=== PATIENT | male | born 1930 | race Caucasian/White ===

== ENCOUNTER 2016-09-30 10:34 | Inpatient (IN) | payer OTHER, MEDICARE ==
[~2016-09-30] VITALS: Ht 175.3 cm; Wt 68.9 kg
[~2016-09-30 10:34] MED LIST: DONEPEZIL HYDRO10 MG PO; METFORMIN HCL500 M3 PO; NAMENDA10 MG PO; OMEPRAZOLE40 MG PO; SIMVASTATIN20 MG PO
--- NOTE | 2016-09-30 10:41 | NUR ---
86 YO MALE BIBA FROM HOME. PT HX OF DEMENTIA. EMS CALLED BY PTS THIS AM WHEN SHE FOUND PT ON THE FLOOR IN THE BATHROOM, UNKNOWN HOW PT GOT ON THE FLOOR AND HOW LONG HE WAS ON THE FLOOR FOR. PT ARRIVES ALERT. ABLE TO STATE NAME AND BDAY BUT UNABLE TO STATES MONTH OR YEAR, PER EMS PTS STATES HE IS ACTING AT BASELINE. PT NOTED WITH NONPRODUCTIVE COUGH. SATS ON EMS ARRIVAL 80s, PLACED ON 4L NC, SATS 90% AT THIS TIME. TEMP 102.6.
--- NOTE | 2016-09-30 10:53 | NUR ---
MD ISABEL THOMAS EVAL
--- NOTE | 2016-09-30 11:05 | NUR ---
IV EST. BLOODWORK SENT (LAB, SST, BLUE, QUIROGA, PINK) 1ST SET BC SENT. PT DENIES COMPLAINTS. COARSE NON PRODUCTIVE COUGH NOTED SAT 88-90% ON 4L.
[2016-09-30 11:13] LABS: ABSOLUTE BASOPHIL COUNT 0 /CUMM (0.0-0.2); ABSOLUTE EOSINOPHIL COUNT 0 /CUMM (0.0-0.7); ABSOLUTE MONOCYTE COUNT 1.1 /CUMM (0.10-0.60); BASOPHIL % 0.1 % (0.0-2.0); EOSINOPHIL % 0 % (0-5); GRANULOCYTE % 86.4 % (42.2-75.2); HEMATOCRIT 45.3 % (42-52); MEAN CORPUSCULAR HGB 30.7 PG (27.0-31.0); MEAN CORPUSCULAR VOLUME 90.2 FL (80.0-94.0); MEAN PLATELET VOLUME 9.7 FL (7.4-10.4); PLATELET COUNT 188 /CUMM (130-400); RBC DISTRIBUTION WIDTH 13.2 % (11.5-14.5); RED BLOOD CELL CT 5.03 /CUMM (4.70-6.10)
--- NOTE | 2016-09-30 12:00 | NUR ---
SST AND BLUE TOP REDRAWN AND SENT AT 1152.
--- NOTE | 2016-09-30 12:10 | NUR ---
TO/FROM CT SCAN REMAINS SMILING WITH NO COMPLAINTS. STATES SHE TOOK THEM THIS AM AND IT WAS 100.0. NO MEDS GIVEN AT THAT TIME PER ; SPECIFICALLY, NO TYLENOL GIVEN MED WITH IV TYLENOL PER MAR AT THIS TIME. SAT 91-92% ON 4L. TEMP 102.4
--- NOTE | 2016-09-30 12:13 | CT SCAN REPORT ---
EXAMINATION: CT HEAD WITHOUT CONTRAST CT CERVICAL SPINE WITHOUT CONTRAST CLINICAL INFORMATION: Found on the floor. History of dementia. Head trauma. COMPARISON: None. TECHNIQUE: Contiguous axial imaging was performed from the skull base to vertex without intravenous administration of contrast. In addition, helical noncontrast CT imaging was acquired through the cervical spine and source images were reviewed along with axial reconstructions and sagittal and coronal MPRs. DLP: 945 mGy-cm FINDINGS: HEAD: There is no hemorrhage, edema, mass effect, extra-axial collection, shift of normally midline structures, hydrocephalus, territorial infarct, or other acute finding. There is moderate generalized prominence of the ventricles, sulci, and extra-axial series of spaces. There is mild hypoattenuation within the bihemispheric white matter most suggestive of chronic microangiopathy. There appears to be a chronic lacunar infarct within the anterior limb of the right internal capsule. The calvarium is intact. The mastoid air cells and middle ear cavities are clear. The left mastoid air cells are hypopneumatized. There are moderate degenerative changes involving the temporomandibular joints bilaterally. Moderate inflammatory disease within the ethmoid air cells bilaterally and mild mucosal thickening in the frontal, sphenoid, and maxillary sinuses. The nasal cavity appears clear. The upper nasopharynx appears grossly symmetric. CERVICAL SPINE: Vertebral body height is maintained. There are no compression deformities. No evidence of cervical spinal fracture. There is grade 1 degenerative anterolisthesis of C2 on C3, C3 on C4, C4 on C5, and C7 on T1. There is mild intervertebral disc height loss at several levels and moderate intervertebral disc height loss at C5-C6 and C6-C7 with endplate spurring, sclerosis and irregularity as well as Schmorl's nodes. There is no prevertebral soft tissue swelling. The lateral masses of C1 and C2 articulate normally. The atlantoaxial and atlantooccipital articulations are maintained. No high-grade canal stenosis. Moderate foraminal stenosis on the left at C3-C4 and bilaterally at C6-C7. Advanced multilevel facet arthropathy. The imaged pharyngeal and laryngeal contours appear unremarkable. No cervical adenopathy is appreciated. The visualized lung apices demonstrate no pneumothoraces. IMPRESSION: 1. No acute intracranial pathology. Moderate generalized volume loss and mild chronic microangiopathy. 2. No CT evidence of acute cervical spine fracture or traumatic subluxation. Multilevel spondylosis as above. 3. Mild to moderate pansinus inflammatory disease.
[2016-09-30 12:26] LABS: PT 11.8 SEC (9.4-12.5); PTT 30 SEC (25-37)
--- NOTE | 2016-09-30 12:29 | CT SCAN REPORT ---
EXAMINATION: CT CHEST WITHOUT CONTRAST CLINICAL INFORMATION: Fever. Chest trauma. Evaluate for pneumonia. COMPARISON: Previous CTA of the chest and chest x-ray most recent 08/08/2016. TECHNIQUE: Multidetector volumetric CT imaging of the chest was done. Axial MIP volume rendering provided. Sagittal and coronal reformatted images were obtained. Exam is limited due to artifact from respiratory motion, particularly at the lung bases. DLP: 502 mGy-cm. FINDINGS: QA REVIEWER: The cardiac silhouette is enlarged. There is atelectasis at the left lung base. LUNGS: There is increasing atelectasis or small infiltrate in the left lower lobe. The lungs are otherwise clear. There is no pneumothorax. MEDIASTINUM: Prominent mediastinal lymph nodes are unchanged. Largest lymph node is an AP window lymph node measuring 0.8 x 1.3 cm axial image 22 series 2. The thoracic aorta is upper normal in size, ascending thoracic aorta measuring 4 cm. There is coronary artery calcification. Heart is enlarged. There is an esophageal hernia. PLEURA: There is no pleural effusion. No pleural mass or thickening. AXILLA: No lymphadenopathy. UPPER ABDOMEN: Unremarkable. OSSEOUS STRUCTURES: There are degenerative changes of the thoracic spine. No fracture is seen. IMPRESSION: Limited exam due to artifact from motion. New atelectasis or small pneumonia in the left lower lobe. No fracture, pleural effusion or pneumothorax seen. Stable mediastinal lymphadenopathy. Coronary artery calcification. Upper normal size thoracic aorta. Esophageal hernia.
--- NOTE | 2016-09-30 12:45 | NUR ---
REPEAT TEMP 101.6 PT STATED HE NEEDED TO VOID; BY THE TIME STAFF ENTERED ROOM, BRIEFS NOTED TO BE A LITTLE WET. PT DENIES NEEDING TO URINATE IN URINAL BUT STATES HE WILL TELL STAFF WHEN ABLE. DR HALL AWARE OF AND AGREEABLE TO SAME C COLLAR REMOVED PER .
--- NOTE | 2016-09-30 12:53 | NUR ---
FLUIDS INFUSING @ 150 ML/HR PER MAR
--- NOTE | 2016-09-30 13:30 | NUR ---
PT URNIATED IN URINAL 50CC. SPECIMEN SENT TO LAB
--- NOTE | 2016-09-30 14:24 | NUR ---
ASSISTED PT TO USE URINAL AT THIS TIME, OUTPUT 200CC. PT RESTING ON STRETCHER AT THIS TIME, OFFERS NO COMPLAINTS. WILL CTM
--- NOTE | 2016-09-30 14:25 | ED MVC/FALL/TRAUMA COMPLAINT ---
History of Present Illness General Chief Complaint: Fall Stated Complaint: UNWITNESSED FALL Source: patient, family, old records, EMS Exam Limitations: dementia Vital Signs & Intake/Output Vital Signs & Intake/Output Vital Signs Date Time Temp Pulse Resp B/P Pulse O2 O2 Flow FiO2 Ox Delivery Rate 10/02 0013 98.3 64 20 118/60 91 Nasal Cannula 10/02 0000 Nasal 2.0L Cannula 10/01 2027 99.7 10/01 1914 101.7 98 22 148/70 92 Nasal 2.0L Cannula 10/01 1909 101.7 10/01 1811 99.9 86 20 166/76 90 Nasal 3.0L Cannula 10/01 0850 98.8 79 18 120/64 98 Nasal 2.0L Cannula 10/01 0800 Nasal 3.0L Cannula ED Intake and Output 10/02 0000 10/01 1200 Intake Total 5 860 Output Total Balance 5 860 Intake, IV 1265 620 Intake, Oral 780 240 Number 1 Bowel Movements Allergies Coded Allergies: NO KNOWN ALLERGIES (03/15/14) Reconcile Medications Donepezil Hydrochloride 10 MG TAB 1 TAB PO DAILY DEMENTIA (Reported) Memantine Hydrochloride (Namenda) 10 MG TABLET 1 TAB PO BID DEMENTIA ( Reported) Metformin HCl 500 MG TABLET 1 TAB PO BID DIABETES (Reported) Omeprazole 40 MG CAPSULE.DR 1 CAP PO DAILY HEART BURN Simvastatin (Zocor) 20 MG TAB 1 TAB PO QPM CHOLESTEROL (Reported) Triage Note: 86 YO MALE BIBA FROM HOME. PT HX OF DEMENTIA. EMS CALLED BY PTS THIS AM WHEN SHE FOUND PT ON THE FLOOR IN THE BATHROOM, UNKNOWN HOW PT GOT ON THE FLOOR AND HOW LONG HE WAS ON THE FLOOR FOR. PT ARRIVES ALERT. ABLE TO STATE NAME AND BDAY BUT UNABLE TO STATES MONTH OR YEAR, PER EMS PTS STATES HE IS ACTING AT BASELINE. PT NOTED WITH NONPRODUCTIVE COUGH. SATS ON EMS ARRIVAL 80s, PLACED ON 4L NC, SATS 90% AT THIS TIME. TEMP 102.6. Triage Nurses Notes Reviewed? yes HPI: Patient presents for evaluation of a fall that occurred about 645 this morning while at home. Patient was found by his on the floor. The patient himself has dementia and is unable to provide history. The patient hadn't presented for breakfast at the usual time prompting his to look for him. She states she found him lying on the floor and he was very limp. She was unable to lift him so she allowed him to "rest" on the floor for a short while. He seemed very sleepy to her. She states that he also felt warm over yesterday and today and she took his temperature at one point noting it to be 100F. Since the patient was unable to get up off the floor the patient's called her daughter. Past History Travel History Traveled to [place] past 21 day No Medical History Any Pertinent Medical History? 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 No Review of Systems Review of Systems Constitutional: Reports: no symptoms. Eyes: Reports: no symptoms. Ears, Nose, Throat, Mouth: Reports: no symptoms. Respiratory: Reports: see HPI. Cardiovascular: Reports: no symptoms. Gastrointestinal/Abdominal: Reports: no symptoms. Genitourinary: Reports: no symptoms. Musculoskeletal: Reports: no symptoms. Skin: Reports: no symptoms. Neurological/Psychological: Reports: no symptoms. All Other Systems: Reviewed and Negative Physical Exam Physical Exam General Appearance: see below Comments: Gen.: Well-nourished, well-developed, no acute respiratory distress. Head: Normocephalic, atraumatic. Eyes: Normal inspection bilaterally Ears: Normal inspection bilaterally Nose: Normal inspection Throat/mouth : Moist mucosa Neck: Cervical collar in place from prehospital Heart: Regular rate and rhythm, no murmurs rubs or gallops Lungs: Clear to auscultation bilaterally with normal air entry Chest: Nontender Back: Normal range of motion Abdomen: Soft, nontender, nondistended, normal bowel sounds Extremities: Normal range of motion grossly, equal radial pulses, no cyanosis clubbing or edema Neurologic: Cranial nerves grossly intact, speech is clear Skin: warm and dry Psychiatric: Calm, cooperative, no apparent delusions or hallucinations Core Measures ACS in differential dx? No Severe Sepsis Present: No Septic Shock Present: No Progress Differential Diagnosis: head trauma, C-spine trauma, chest trauma, electrolyte abnormality, dehydration, occult infection Plan of Care: Orders Procedure Date/time Status Consistent Carbohydrate 3 10/01 L Active SWALLOW EVALUATION 10/01 UNK Active Evaluate Swallowing 10/01 UNK Complete Therapeutic Exercise 10/01 UNK Complete PT EVAL MOD COMPLEX 30 MIN 10/01 UNK Complete Gait Training 10/01 UNK Complete VIRAL CULTURE 09/30 2250 Active OXYGEN SETUP CHG 09/30 UNK Complete OXYGEN 09/30 UNK Complete OXYGEN TRANSPORT 09/30 UNK Complete Current Medications Sig/Noah Start time Last Medication Dose Stop Time Status Admin Omeprazole 40 MG DAILY AC 10/01 0700 AC (Prilosec) Laboratory Tests 10/01/16 0620: Anion Gap 12, Estimated GFR > 60, BUN/Creatinine Ratio 21.3, Creatine Kinase 2797 H, CBC w Diff NO MAN DIFF REQ, RBC 4.18 L, MCV 92.3, MCH 30.7, RDW 13.5, MPV 9.9, Gran % 79.0 H, Lymphocytes % 12.4 L, Monocytes % 8.3, Eosinophils % 0 , Basophils % 0.3, Absolute Granulocytes 11.6 H, Absolute Lymphocytes 1.8, Absolute Monocytes 1.2 H, Absolute Eosinophils 0, Absolute Basophils 0, PUBS MCHC 33.3 Comments: 09/30/2016 2:45:34 PM I have updated Christopher and his regarding test results. I am treating him with Rocephin and azithromycin based on the possibility of a pneumonia. He also has an indication of sinus disease but does not appear to have a urinary tract infection at this point. His case has been discussed with Dr. Emily Peres. Since it is unclear as to the reason why he fell he will be admitted to telemetry for the possibility of a syncope secondary to dysrhythmia. Departure Departure Disposition: STILL A PATIENT Condition: Stable Clinical Impression Primary Impression: Fall Qualifiers: Encounter type: initial encounter Qualified Code: W19.XXXA - Unspecified fall, initial encounter Secondary Impressions: Pneumonia Qualifiers: Pneumonia type: due to unspecified organism Laterality: left Lung location: lower lobe of lung Qualified Code: J18.1 - Lobar pneumonia, unspecified organism Referrals: AZEEM GARCIA MD (PCP/Family) Departure Forms: Customer Survey General Discharge Information Admission Note Spoke With: MIA LYMAN,EMILY Lynn Documentation of Exam: Documentation of any treatments & extenuating circumstances including Concerns Regarding Discharge (functional status, medication knowledge or non-compliance, living conditions, etc.) that warrant an admission rather than observation: Patient presents status post fall for unclear reason at home. he has dementia and is unable to provide any history. He is febrile here in the emergency department with an elevated white blood cell count and the possibility of pneumonia on a CAT scan. In addition he has evidence of sinus inflammation on a head CAT scan. While at home the patient was unable to get up off the floor due to profound weakness. Given the patient's dementia weakness and fever I do not think he is a good candidate for outpatient management at this time. I feel he would be incapable of fulfilling his activities of daily living and would be at high risk of further falling with injury. In addition, given his age he is at increased risk of developing sepsis. I feel he requires aggressive management with IV antibiotics and close clinical monitoring of vital signs and clinical condition. Culture results should be followed and treated accordingly. Physical therapy consultation should be considered given the patient's generalized weakness. I feel he'll require a multiple day hospitalization. Critical Care Note Critical Care Note Critical Care Time: 30-74 min
--- NOTE | 2016-09-30 14:53 | NUR ---
MD ISABEL AT BEDSIDE TO DISCUSS TEST RESULTS AND POC. PT MEDICATED WITH ROCEPHINE PER EMAR. ZITHROMAX INFUSING PER EMAR. VSS.
--- NOTE | 2016-09-30 15:12 | History & Physical ---
STEVENSON CASTAÑEDA MD 09/30/16 1512: General Information and HPI Source of Information: patient, family, old records Exam Limitations: clinical condition History of Present Illness: Patient is an 86-year-old male with significant past medical history Alzheimer's dementia, hypertension, diabetes, GERD, hyperlipidemia, history of skin cancer, admitted with the chief complaints of unwitnessed fall. History is taken from the because the patient's clinical condition and Alzheimer's dementia. According to the , she found the patient in the morning on the floor by the side of bed. Then she called her daughter to help her. The daughter called the ambulance and they bring the patient over here. Patient is having history of cough and generalized weakness since last 3-4 days, but it is dry in nature. They did not try any medication for it. They also said that patient was having fever 100 Fahrenheit at home. Denies chills, nausea, vomiting, fever, sore throat, weakness, confusion, dysuria, altered bowel movement. claims that he was having history of runny nose since last 8 years due to medication, taking for Alzheimer's dementia. He is also having periods of intermittent confusion. He has past medical history of admission in August 2016 for fever of unknown origin. Allergies/Medications Allergies: Coded Allergies: NO KNOWN ALLERGIES (03/15/14) Home Med list Donepezil Hydrochloride 10 MG TAB 1 TAB PO DAILY DEMENTIA (Reported) Memantine Hydrochloride (Namenda) 10 MG TABLET 1 TAB PO BID DEMENTIA ( Reported) Metformin HCl 500 MG TABLET 1 TAB PO BID DIABETES (Reported) Omeprazole 40 MG CAPSULE.DR 1 CAP PO DAILY HEART BURN Simvastatin (Zocor) 20 MG TAB 1 TAB PO QPM CHOLESTEROL (Reported) Past History Travel History Traveled to [place] past 21 day No Medical History Neurological: Alzheimer's disease, dementia EENT: NONE Cardiovascular: hyperlipidemia Respiratory: NONE Gastrointestinal: NONE Hepatic: NONE Renal: NONE Musculoskeletal: NONE Psychiatric: NONE Endocrine: diabetes Blood Disorders: NONE 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 Comments Cannot be assessed because of patient's clinical condition. Exam & Diagnostic Data Last 24 Hrs of Vital Signs/I&O Vital Signs Date Time Temp Pulse Resp B/P Pulse O2 O2 Flow FiO2 Ox Delivery Rate 09/30 1706 100.6 92 16 152/66 93 Nasal 2.5L Cannula 09/30 1659 94 Nasal 2.5L Cannula 09/30 1455 100.1 76 18 108/52 93 Nasal 2.5L Cannula 09/30 1247 101.6 09/30 1246 101.6 102 92 110/55 92 Nasal 2.0L Cannula 09/30 1213 88 Room Air 09/30 1211 102.4 09/30 1210 102.4 09/30 1037 102.6 116 18 154/73 90 Nasal 4.0L Cannula Intake & Output 09/30 1600 09/30 0800 09/30 0000 Intake Total Output Total 50 Balance -50 Output, Urine 50 Patient 83.915 kg Weight Physical Exam General Appearance Alert, Cooperative, No Acute Distress Skin No Rashes, No Breakdown Neck Supple, No JVD Cardiovascular Regular Rate, Normal S1, Normal S2 Lungs decreased air entry and clear Right and left basilar rhonchi Abdomen Soft, No Tenderness, distended Neurological Normal Speech Extremities No Clubbing, No Cyanosis, No Edema Vascular Normal Pulses, Pulses Symmetrical Assessment/Plan Assessment: Patient is an 86-year-old male with significant past medical history Alzheimer's dementia, hypertension, diabetes, GERD, hyperlipidemia, history of skin cancer, admitted with the chief complaints of unwitnessed fall. History has been taken from the because the patient's clinical condition and Alzheimer's dementia Vital signs at the time of admission- [id number], pulse 116, respiratory rate 18, blood pressure 154/73, SPO2 90% on nasal cannula at 4 liters. Chest x-ray- New atelectasis or small pneumonia in the left lower lobe. No fracture, pleural effusion or pneumothorax seen.Stable mediastinal lymphadenopathy. Coronary artery calcification. Upper normal size thoracic aorta. Esophageal hernia Pertinent labs-WBC 15.0, magnesium 1.5, glucose 150, creatine kinase 1039, UA - hazy, protein 30, ketones 40, Problem list- Unwitnessed fall under evaluation Left lower lobe pneumonia/community acquired pneumonia Diabetes Hypertension Hyperlipidemia GERD Alzheimer's dementia Mediastinal lymphadenopathy Coronary artery calcification Esophageal hernia History of skin cancer Plan - * We will admit the patient on telemetry to evaluate for cardiac arrhythmias as the patient had unwitnessed fall and found to be in hypoxemic respiratory failure with fever. * CT chest is showing left lower lobe pneumonia, so we'll treat him for community-acquired pneumonia with ceftriaxone and azithromycin. * We will do a flu test * As the patient's CPK is elevated , we will stop atorvastatin. * We will stop metformin and start him on NovoLog sliding scale * We'll monitor pre-meal blood sugar 3 times a day * We will recheck CBC/BEP/CPK tomorrow * Advice PT evaluation * We will do echocardiogram * We will place a consult for Gordo Garcia MD/Redd Blake MD and follow his recommendation. * We'll continue all home medication * CODE STATUS DNR/DNI * DVT prophylaxis ALP S/heparin * Diet -heart healthy diet. After formal swallow evaluation As Ranked By This Provider Problem List: 1. Left lower lobe pneumonia 2. Community acquired pneumonia 3. Unwitnessed fall 4. Hypertension 5. Hyperlipidemia 6. Diabetes mellitus 7. Alzheimer's dementia Core Measures/Miscellaneous Acute Coronary Syndrome ACS Diagnosis: No Cerebrovascular Accident CVA/TIA Diagnosis: No Congestive Heart Failure CHF Diagnosis: No Venous Thromboembolism VTE Risk Factors: Age > 40 VTE Prophylaxis Ordered Inpt: Mechanical (ALPS/TEDS) No Mech VTE prophylaxis d/t: No contraindications No VTE Pharm Prophylaxis d/t: No contraindications VTE Diagnosis: No VTE Type: NONE VTE Confirmed by (Test): NONE Severe Sepsis Severe Sepsis Present: No Septic Shock Septic Shock Present: No Miscellaneous Documentation Attending Case Discussed With: MIA LYMAN,ULYSSES Lynn Primary Care Physician: AZEEM GARCIA MD Patient sees these Specialists Communications Professor -Dr. Garcia Level of Patient Care: Telemetry YEFRI LYMAN,ABNER 09/30/16 1607: Resident Review Statement Resident Statement: examined this patient, discussed with cad intern, agreed with cad intern Other Findings: 86 y/o man with a PMH of HTN, DM, dementia who presented to the ED after an unwitnessed fall. Per , he has also been having a non productive cough over the last 4 days and recorded a temperature of 100F this AM. Head CT negative of Problem List: * Community Acquired Pneumonia * Unwitnessed fall complicated by prolonged immobility * Diabetes Mellitus * Hyperlipidemia * Dementia Plan: * Admit to telemetry * Start Ceftriaxone and Azithromycin * Blood culture, sputum cultures * IVF NS at 75 ml/hr * Repeat CK in AM * Hold Metformin, Fingersticks, Low Dose sliding scale * Continue home Memantine and Donepezil * DVT PPx: SubQ Lovenox * Pain Pathway: Tylenol PRN * Code Status: DNR/DNI ULYSSES BELLAMY MD 10/01/16 1044: Attending MD Review Statement Attending Statement Attending MD Statement: examined this patient, discuss w/resident/PA/LAB CLERK, agreed w/resident/PA/LAB CLERK, reviewed EMR data (avail), discussed with nursing, discussed with case mgmt, reviewed images Attending Assessment/Plan: See medical brief addendum note dated 09/30/2016.
--- NOTE | 2016-09-30 15:16 | Admission Certification ---
Admission Certification Certification Statement - As attending physician, I certify that at the time of - admission, based on clinical presentation, severity of - symptoms, need for further diagnostic testing and - therapeutic interventions, and risk of adverse outcomes - without in-hospital treatment, in my clinical assessment, - this patient requires an acute hospital stay for a minimum - of two nights or longer. I have also considered psychsocial - factors such as support system, advanced age, financial - issues, cognitive issues, and failed out-patient treatments, - past re-admission history, safety of patient, and lack of - compliance as applicable. Specific rationale supporting this admission is: Syncope in patient with dementia and fever 102 with community-acquired pneumonia.
--- NOTE | 2016-09-30 15:22 | PN- Att Addend ---
Attending Addendum Attending Brief Note 86-year-old male past medical history of dementia, admission in July- August 2016 for fever of unclear etiology. He was brought in today after being found on the floor by his with unknown duration spent on the floor. When he arrived in the ER he was febrile to 102.6 with acute hypoxemic respiratory failure (sat 88 percent on RA), leukocytosis of [address] chest done without contrast showed a small left lower lobe pneumonia. Will bring him into telemetry, monitor him for any arrhythmia, get an echocardiogram. Treat him with IV ceftriaxone and azithro for community-acquired pneumonia and follow the white count and O2 sat closely. Hold Metformin, watch FS and put him on DVT prophylaxis.
--- NOTE | 2016-09-30 16:11 | NUR ---
FOOD TRAY PROVIDED TO PT.
--- NOTE | 2016-09-30 16:26 | NUR ---
PT ADMITTED TO ROOM 174-2
--- NOTE | 2016-09-30 17:22 | NUR ---
REPORT GIVEN TO TELE, [facility] CALLED FOR TRANSPORT.
--- NOTE | 2016-10-01 03:06 | Event Note ---
Event Note Event Note: Rapid flu test came back positive for influenza B. Although patient's symptoms of cough and generalized weakness had been ongoing for 3-4 days, fever was new and had started on the morning of current presentation. Patient was seen at bedside to clarify if he was still within the time window for Tamiflu, however he was unable to provide any history given his dementia. It was felt that patient could still be within the 48-hour window from the onset of symptoms since the fever and acute hypoxemic respiratory failure was new. Decision was to made to err on the side of caution and start the patient on Tamiflu 75 mg PO BID , however nursing staff felt that patient was too lethargic to take medications. Per pharmacy, there is no IV form of Tamiflu that can be administered. Patient will be started on oral Tamiflu pending formal swallow evaluation in the AM.
[2016-10-01 07:49] LABS: ABSOLUTE BASOPHIL COUNT 0 /CUMM (0.0-0.2); ABSOLUTE EOSINOPHIL COUNT 0 /CUMM (0.0-0.7); ABSOLUTE GRANULOCYTE CT 11.6 /CUMM (1.4-6.5); ABSOLUTE LYMPH COUNT 1.8 /CUMM (1.2-3.4); ABSOLUTE MONOCYTE COUNT 1.2 /CUMM (0.10-0.60); BASOPHIL % 0.3 % (0.0-2.0); EOSINOPHIL % 0 % (0-5); MEAN CORPUSCULAR HGB 30.7 PG (27.0-31.0); MEAN CORPUSCULAR HGB CONC 33.3 G/DL (33.0-37.0); MEAN CORPUSCULAR VOLUME 92.3 FL (80.0-94.0); MEAN PLATELET VOLUME 9.9 FL (7.4-10.4); PLATELET COUNT 151 /CUMM (130-400); RBC DISTRIBUTION WIDTH 13.5 % (11.5-14.5); RED BLOOD CELL CT 4.18 /CUMM (4.70-6.10); WHITE BLOOD CELL COUNT 14.6 /CUMM (4.8-10.8)
[2016-10-01 08:19] LABS: HEMATOCRIT 38.5 % (42-52)
[2016-10-01 08:50] VITALS: BP 120/64
--- NOTE | 2016-10-01 10:48 | PN- Att Addend ---
Attending Addendum Attending Brief Note Patient seen and examined. Agree with the advertising intern's note. 86-year-old male with dementia, hyperlipidemia who was brought in after being found on the floor by his . He has mild rhabdo my lysis with an elevated CPK (hold the statin in the meantime). He was also febrile to 102 with a white count and a left shift. We started him on ceftriaxone and azithromycin for pneumonia and his influenza swab came back positive. Given that he is hospitalized, over the age of 65 and has significant comorbidities I believe it's prudent to treat him with Tamiflu. He passed a swallow eval so we'll start him on a regular diet, by mouth medications and continue the antibiotics for a superinfection of influenza with pneumonia.
--- NOTE | 2016-10-01 13:22 | PN- Housestaff ---
Subjective Follow-up For: Influenza B Left Lower lobe pneumonitis Complaints: no complaints Tele-Events Since Last Visit: There was no any acute cardiac event overnight Subjective: Patient was seen and examined at the bedside. He was able to answer most of questions asked to him. I did a formal swallow evaluation at the bedside. He was able to drink a glass of water without any difficulty and after drinking the water, there was no any signs in the bilateral lungs of aspiration Review of Systems Constitutional: Reports: weakness. EENTM: Denies: no symptoms. Cardiovascular: Denies: no symptoms. Respiratory: Reports: cough. Denies: short of breath, sputum production. Gastrointestinal: Denies: abdominal pain, bloating, constipation, diarrhea. Genitourinary: Denies: discharge, dysuria, frequency, hematuria. Musculoskeletal: Denies: back pain, gout, joint pain, joint swelling, muscle pain. Objective Last 24 Hrs of Vital Signs/I&O Vital Signs Date Time Temp Pulse Resp B/P Pulse O2 O2 Flow FiO2 Ox Delivery Rate 10/01 0850 98.8 79 18 120/64 98 Nasal 2.0L Cannula 10/01 0800 Nasal 3.0L Cannula 10/01 0322 97.5 22 93 Nasal 3.0L Cannula 10/01 0115 97.5 10/01 0023 99.2 10/01 0000 93 Nasal 3.0L Cannula 09/30 2232 101.8 09/30 1800 93 Nasal 2.5L Cannula 09/30 1706 100.6 92 16 152/66 93 Nasal 2.5L Cannula 09/30 1659 94 Nasal 2.5L Cannula Intake & Output 10/01 1600 10/01 0800 10/01 0000 Intake Total 1205 860 420 Output Total Balance 1205 860 420 Intake, IV 665 620 420 Intake, Oral 540 240 0 Number 1 2 Bowel Movements Patient 68.946 kg Weight Physical Exam General Appearance: Alert, Oriented X3, Cooperative, No Acute Distress Skin: No Rashes, No Breakdown HEENT: Atraumatic, PERRLA, EOMI Neck: Supple, No JVD Cardiovascular: Normal S1, Normal S2 Lungs: crackles at left lung base Abdomen: Soft, distended Neurological: Normal Speech Extremities: No Clubbing, No Cyanosis, No Edema Vascular: Normal Pulses, Pulses Symmetrical Assessment/Plan Assessment: Patient is an 86-year-old male with significant past medical history Alzheimer's dementia, hypertension, diabetes, GERD, hyperlipidemia, history of skin cancer, admitted with the chief complaints of unwitnessed fall. History has been taken from the because the patient's clinical condition and Alzheimer's dementia Problem list- Influenza B Unwitnessed fall under evaluation Left lower lobe pneumonia/community acquired pneumonia Diabetes Hypertension Hyperlipidemia GERD Alzheimer's dementia Mediastinal lymphadenopathy Coronary artery calcification Esophageal hernia History of skin cancer Vital signs-temperature 98.8, pulse 79, respiratory rate 18, blood pressure 120/ 64, SPO2 98% Pertinent labs-WBC 14.6, hemoglobin 12.8, [id number], UA-Hazy Plan - * We'll continue telemetry monitoring * We'll continue ceftriaxone and azithromycin. * As flu test is positive for influenza B, and patient is having comorbidities including his age more than 65, so we started him on Tamiflu for total 5 days * As the patient's CPK is elevated , we will continue to stop atorvastatin. * We will continue to stop metformin and give him NovoLog sliding scale * We'll monitor pre-meal blood sugar 3 times a day * Continue PT evaluation * We will follow echocardiogram * We will follow cardiology recommendation * We'll continue all home medication * CODE STATUS DNR/DNI * DVT prophylaxis ALP S/heparin * Diet -heart healthy diet, he passed formal swallow evaluation Problem List: 1. Hypertension 2. Hyperlipidemia 3. Diabetes mellitus 4. Alzheimer's dementia 5. Unwitnessed fall 6. Left lower lobe pneumonia 7. Community acquired pneumonia Pain Ratin Pain Location: Generalized body Pain Goal: Remain pain free Pain Plan: Mild to moderate Tomorrow's Labs & Rationales: none
[2016-10-01 18:11] VITALS: BP 166/76
--- NOTE | 2016-10-01 19:11 | Cons- Cardiology ---
General Information and HPI Consulting Request Date of Consult: 10/01/16 Requested By: ULYSSES BELLAMY MD Reason for Consult: Possible syncope History of Present Illness: The patient is an 86-year-old male with history of Alzheimer's dementia, hypertension, diabetes mellitus, GERD, and hyperlipidemia. He was found by his on the floor next to the bed in the morning. EMS was called but the patient to the hospital. The patient able to give only limited history because of his Alzheimer's dementia. He does not recall falling, and is unsure whether he had syncope. The patient had recent cough and generalized weakness for 3-4 days. The patient was noted to have a fever of 100F at home. He has had intermittent. No confusion. No chest pain. No shortness of breath. No palpitations. No diaphoresis. No lightheadedness or dizziness. No nausea or vomiting. He was pretty submitted in August 2016 for fever of unknown origin. He has tested positive for influenza, and treatment with Tamiflu has been initiated. Allergies/Medications Allergies: Coded Allergies: NO KNOWN ALLERGIES (03/15/14) Home Med List: Donepezil Hydrochloride 10 MG TAB 1 TAB PO DAILY DEMENTIA (Reported) Memantine Hydrochloride (Namenda) 10 MG TABLET 1 TAB PO BID DEMENTIA ( Reported) Metformin HCl 500 MG TABLET 1 TAB PO BID DIABETES (Reported) Omeprazole 40 MG CAPSULE.DR 1 CAP PO DAILY HEART BURN Simvastatin (Zocor) 20 MG TAB 1 TAB PO QPM CHOLESTEROL (Reported) Current Medications: Current Medications Sig/Noah Start time Last Medication Dose Route Stop Time Status Admin Acetaminophen 650 MG Q6 PRN 10/01 1845 AC PO Acetaminophen 1,000 MG Q6P PRN 09/30 2230 AC 09/30 N/A 1 UNIT IV 2232 Acetaminophen 650 MG Q6P PRN 09/30 1545 DC PO Azithromycin 500 MG DAILY 10/01 1000 10/01 Dextrose/Water 250 ML IV 1047 Ceftriaxone Sodium 1,000 MG DAILY 10/01 1000 AC 10/01 IV 1048 Donepezil HCl 10 MG DAILY 10/01 1000 AC 10/01 PO 1034 Enoxaparin Sodium 40 MG DAILY 10/01 1000 10/01 SC 1037 Guaifenesin 600 MG ONCE ONE 10/01 1845 DC PO 10/01 1846 Insulin Aspart 0 TIDAC 09/30 1700 AC 10/01 SC 1236 Magnesium Sulfate 1 GM ONCE ONE 09/30 1600 DC 09/30 Dextrose/Water 100 ML IV 09/30 1958 1700 Memantine 10 MG BID 09/30 2200 AC 10/01 PO 1034 Omeprazole 40 MG DAILY AC 10/01 0700 AC PO Oseltamivir Phosphate 75 MG BID 10/01 0100 AC 10/01 PO 10/05 0059 1034 Sodium Chloride 1,000 ML .[id number] 09/30 1545 DC 10/01 IV 10/01 1824 1033 Sodium Chloride 1,000 ML ONCE ONE 09/30 1300 DC 09/30 IV 09/30 1939 1254 Review of Systems Review of Systems: No rash. No tremor. No melena. 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 Family History Relations & Conditions If Any: MOTHER FATHER Relation not specified for: FH: CHF (congestive heart failure) FH: lung cancer Psychosocial History Services at Home: None Smoking Status: Unknown If Ever Smoked Exam & Diagnostic Data Vital Signs and I&O Vital Signs Date Time Temp Pulse Resp B/P Pulse O2 O2 Flow FiO2 Ox Delivery Rate 10/01 1811 99.9 86 20 166/76 90 Nasal 3.0L Cannula 10/01 0850 98.8 79 18 120/64 98 Nasal 2.0L Cannula 10/01 0800 Nasal 3.0L Cannula 10/01 0322 97.5 22 93 Nasal 3.0L Cannula 10/01 0115 97.5 10/01 0023 99.2 10/01 0000 93 Nasal 3.0L Cannula 09/30 2232 101.8 Intake & Output 10/01 1600 10/01 0800 10/01 0000 09/30 1600 09/30 0800 09/30 0000 Intake Total 1205 860 420 Output Total 50 Balance 1205 860 420 -50 Intake, IV 665 620 420 Intake, Oral 540 240 0 Number 1 2 Bowel Movements Output, Urine 50 Patient 152 lb 185 lb Weight Physical Exam: Gen: The patient is in no acute distress HEENT: Normal nose, ears, and oropharynx. Pupils equal bilaterally. Conjunctiva normal. Neck: Supple with no JVD, no masses, and no thyromegaly Lungs: Clear to auscultation with normal respiratory effort Heart: RRR, S1, S2, 1/6 systolic murmur. No peripheral edema, 2+ pulses in the lower extremities bilaterally Abdomen: Soft, nontender, no masses. No hepatomegaly. No splenomegaly Extremities: No clubbing or cyanosis. Normal muscle strength in the upper and lower extremities Skin: Normal skin turgor with no skin ulcers or lesions noted. Neuro: Cranial nerves intact. Sensation intact Psych: Awakeand alert, but confused with flat affect Labs/Shimon Results: Laboratory Tests 10/01 09/30 0620 2250 Chemistry Sodium (137 - 145 mmol/L) 141 Potassium (3.5 - 5.1 mmol/L) 4.0 Chloride (98 - 107 mmol/L) 106 Carbon Dioxide (22 - 30 mmol/L) 23 Anion Gap (5 - 16) 12 BUN (9 - 20 mg/dL) 17 Creatinine (0.7 - 1.2 mg/dL) 0.8 Estimated GFR (>60 ml/min) > 60 BUN/Creatinine Ratio (7 - 25 %) 21.3 Creatine Kinase (55 - 170 U/L) 2797 H Hematology CBC w Diff NO MAN DIFF REQ WBC (4.8 - 10.8 /CUMM) 14.6 H RBC (4.70 - 6.10 /CUMM) 4.18 L Hgb (14.0 - 18.0 G/DL) 12.8 L Hct (42 - 52 %) 38.5 L MCV (80.0 - 94.0 FL) 92.3 MCH (27.0 - 31.0 PG) 30.7 RDW (11.5 - 14.5 %) 13.5 Plt Count (130 - 400 /CUMM) 151 MPV (7.4 - 10.4 FL) 9.9 Gran % (42.2 - 75.2 %) 79.0 H Lymphocytes % (20.5 - 51.1 %) 12.4 L Monocytes % (1.7 - 9.3 %) 8.3 Eosinophils % (0 - 5 %) 0 Basophils % (0.0 - 2.0 %) 0.3 Absolute Granulocytes (1.4 - 6.5 /CUMM) 11.6 H Absolute Lymphocytes (1.2 - 3.4 /CUMM) 1.8 Absolute Monocytes (0.10 - 0.60 /CUMM) 1.2 H Absolute Eosinophils (0.0 - 0.7 /CUMM) 0 Absolute Basophils (0.0 - 0.2 /CUMM) 0 PUBS MCHC (33.0 - 37.0 G/DL) 33.3 Serology Virus Culture Pending 09/30 09/30 1325 1152 Chemistry Sodium (137 - 145 mmol/L) 138 Potassium (3.5 - 5.1 mmol/L) 4.3 Chloride (98 - 107 mmol/L) 101 Carbon Dioxide (22 - 30 mmol/L) 26 Anion Gap (5 - 16) 12 BUN (9 - 20 mg/dL) 12 Creatinine (0.7 - 1.2 mg/dL) 0.9 Estimated GFR (>60 ml/min) > 60 BUN/Creatinine Ratio (7 - 25 %) 13.3 Glucose (65 - 99 mg/dL) 150 H Calcium (8.4 - 10.2 mg/dL) 9.6 Magnesium (1.6 - 2.3 mg/dL) 1.5 L Total Bilirubin (0.2 - 1.3 mg/dL) 0.8 AST (17 - 59 U/L) 51 ALT (21 - 72 U/L) 57 Alkaline Phosphatase (< 127 U/L) 91 Creatine Kinase (55 - 170 U/L) 1039 H Troponin I (<0.11 ng/ml) 0.02 Total Protein (6.3 - 8.2 g/dL) 7.7 Albumin (3.5 - 5.0 g/dL) 4.4 Globulin (1.9 - 4.2 gm/dL) 3.3 Albumin/Globulin Ratio (1.1 - 2.2 %) 1.3 Coagulation PT (9.4 - 12.5 SEC) 11.8 INR (0.90 - 1.17) 1.13 APTT (25 - 37 SEC) 30 Urines Urinalysis LIGHT H Urine Color (YEL,AMB,STR) YEL Urine Clarity (CLEAR) HAZY H Urine pH (5.0 - 8.0) 6.0 Ur Specific [place] (1.001 - 1.035) 1.025 Urine Protein (NEG,<30 MG/DL) 30 H Urine Ketones (NEG) 40 H Urine Nitrite (NEG) NEG Urine Bilirubin (NEG) NEG Urine Urobilinogen (0.1 - 1.0 EU/dl) 0.2 Ur Leukocyte Esterase (NEG) NEG Ur Microscopic SEDIMENT EXAMINED Urine RBC (0 - 5 /HPF) 1-3 Urine WBC (0 - 2 /HPF) 1-3 H Ur Epithelial Cells (NONE,FEW) FEW Hyaline Casts (0/LPF) RARE H Granular Casts (NONE /LPF) FEW H Urine Mucus (FEW,NONE) MOD H Urine Hemoglobin (NEG) MOD H Urine Glucose (N MG/DL) NEG 09/30 1058 Hematology CBC w Diff MAN DIFF ORDERED WBC (4.8 - 10.8 /CUMM) 15.0 H RBC (4.70 - 6.10 /CUMM) 5.03 Hgb (14.0 - 18.0 G/DL) 15.4 Hct (42 - 52 %) 45.3 MCV (80.0 - 94.0 FL) 90.2 MCH (27.0 - 31.0 PG) 30.7 RDW (11.5 - 14.5 %) 13.2 Plt Count (130 - 400 /CUMM) 188 MPV (7.4 - 10.4 FL) 9.7 Gran % (42.2 - 75.2 %) 86.4 H Lymphocytes % (20.5 - 51.1 %) 6.5 L Monocytes % (1.7 - 9.3 %) 7.0 Eosinophils % (0 - 5 %) 0 Basophils % (0.0 - 2.0 %) 0.1 Absolute Granulocytes (1.4 - 6.5 /CUMM) 13.0 H Segmented Neutrophils (42.2 - 75.2 %) 69 Band Neutrophils (0.0 - 5.0 %) 13 H Absolute Lymphocytes (1.2 - 3.4 /CUMM) 1.0 L Lymphocytes (20.5 - 51.1 %) 10 L Monocytes (1.7 - 9.3 %) 8 Absolute Monocytes (0.10 - 0.60 /CUMM) 1.1 H Absolute Eosinophils (0.0 - 0.7 /CUMM) 0 Absolute Basophils (0.0 - 0.2 /CUMM) 0 Platelet Estimate (ADEQUATE) ADEQUATE Normocytic RBCs VERIFIED Normochromic RBCs VERIFIED PUBS MCHC (33.0 - 37.0 G/DL) 34.0 Diagnostic Data EKG Results EKG tracing is independently reviewed, and reveals normal sinus rhythm at [address] abnormality Other Results CT scan of the head and cervical spine: 1. No acute intracranial pathology. Moderate generalized volume loss and mild chronic microangiopathy. 2. No CT evidence of acute cervical spine fracture or traumatic subluxation. Multilevel spondylosis as above. 3. Mild to moderate pansinus inflammatory disease. CT chest: Limited exam due to artifact from motion. New atelectasis or small pneumonia in the left lower lobe. No fracture, pleural effusion or pneumothorax seen. Stable mediastinal lymphadenopathy. Coronary artery calcification. Upper normal size thoracic aorta. Esophageal hernia. Assessment/Plan Assessment/Plan Assessment: The patient is an 86-year-old male with history of dementia found on the floor with his after an unknown down time. Found to be febrile with positive rapid flu test. CK is elevated secondary to rhabdomyolysis from prolonged down time. Troponin is negative 1. It is unknown whether the patient had syncope. Recommendations: * IV antibiotics and nothing by mouth Tamiflu as per the medical service * Monitor on telemetry for arrhythmias as a cause of possible syncope * Echocardiogram. Consult Acknowledgment - Thank you for your consult request.
[2016-10-01 19:15] VITALS: BP 148/70
[2016-10-02 00:13] VITALS: BP 118/60
[2016-10-02 08:02] VITALS: BP 148/80
--- NOTE | 2016-10-02 09:15 | PN- Housestaff ---
GARRY LYMAN,STEVENSON 10/02/16 0915: Subjective Follow-up For: Influenza B Left Lower lobe pneumonitis Complaints: no complaints Subjective: Patient was seen and examined at the bedside. He was able to answer most of questions asked to him. According to nurse he was confused overnight, although vitals were stable. Review of Systems Constitutional: Reports: no symptoms. Comments: because of patients clinical condition, we are not able to know symptoms. Objective Last 24 Hrs of Vital Signs/I&O Vital Signs Date Time Temp Pulse Resp B/P Pulse O2 O2 Flow FiO2 Ox Delivery Rate 10/02 0802 98.3 65 20 148/80 94 Nasal 2.0L Cannula 10/02 0013 98.3 64 20 118/60 91 Nasal Cannula 10/02 0000 Nasal 2.0L Cannula 10/01 2027 99.7 10/01 1914 101.7 98 22 148/70 92 Nasal 2.0L Cannula 10/01 1909 101.7 10/01 1811 99.9 86 20 166/76 90 Nasal 3.0L Cannula Intake & Output 10/02 1600 10/02 0800 10/02 0000 Intake Total 130 840 Output Total 550 Balance -420 840 Intake, IV 10 600 Intake, Oral 120 240 Number 1 Bowel Movements Output, Urine 550 Physical Exam General Appearance: Alert, Cooperative, No Acute Distress Skin: No Rashes, No Breakdown HEENT: Atraumatic, PERRLA, EOMI Neck: Supple, No JVD, No thryomegaly Cardiovascular: Regular Rate, Normal S1, Normal S2 Lungs: left lower lobe crackles Abdomen: Soft, No Tenderness, distended Neurological: Normal Speech, can walk with walker Extremities: No Clubbing, No Cyanosis, No Edema Vascular: Normal Pulses Assessment/Plan Assessment: Patient is an 86-year-old male with significant past medical history Alzheimer's dementia, hypertension, diabetes, GERD, hyperlipidemia, history of skin cancer, admitted with the chief complaints of unwitnessed fall. History has been taken from the because the patient's clinical condition and Alzheimer's dementia Problem list- Influenza B Unwitnessed fall under evaluation Left lower lobe pneumonia probable viral pneumonitis and community acquired pneumonia Diabetes Hypertension Hyperlipidemia GERD Alzheimer's dementia Mediastinal lymphadenopathy Coronary artery calcification Esophageal hernia History of skin cancer Vital signs-temperature 98.3, pulse 65, respiratory rate 20, blood pressure 148/ 80, SPO2 94% Plan - * We'll continue telemetry monitoring * We'll continue ceftriaxone and azithromycin. * As flu test is positive for influenza B, and patient is having comorbidities including his age more than 65, so we will continue on Tamiflu for total 5 days * As the patient's CPK is elevated , we will continue to stop atorvastatin. * We will continue to stop metformin and give him NovoLog sliding scale. We will ask if we can restart patient on metformin * We'll monitor pre-meal blood sugar 3 times a day * Continue PT evaluation * We will follow echocardiogram * We will follow cardiology recommendation * We'll continue all home medication * CODE STATUS DNR/DNI * DVT prophylaxis ALP S/heparin * Diet -heart healthy diet, he passed formal swallow evaluation Problem List: 1. Influenza B 2. Left lower lobe pneumonia 3. Unwitnessed fall 4. Alzheimer's dementia 5. Diabetes mellitus 6. Hyperlipidemia 7. Hypertension Pain Ratin Pain Location: generalized body Pain Goal: Remain pain free Pain Plan: mild Tomorrow's Labs & Rationales: cbc, cpk DVT/Prophylaxis: mechanical, pharmacological MIA LYMAN,ULYSSES 10/02/16 1019: Attending MD Review Statement Attending Statement Attending MD Statement: examined this patient, discuss w/resident/PA/SUPERVISOR RECORD PRESS, agreed w/resident/PA/SUPERVISOR RECORD PRESS, reviewed EMR data (avail), discussed with nursing, discussed with case mgmt Attending Assessment/Plan: Patient is confused. He was seen by PT and they cleared him for home PT. Is an 86-year-old male with a history of dementia who is here with acute influenza and a community-acquired pneumonia. We have him on IV antibiotics and Tamiflu. We are holding the statin for mild rhabdo and will follow-up the BUN and creatinine. If the echo is okay will anticipate discharge in a.m.
--- NOTE | 2016-10-02 13:27 | PN- Cardiology ---
Subjective Subjective: No obvious new issues. The patient has no specific complaints but seems slightly confused at the present time. Objective Vital Signs and I&Os Vital Signs Date Time Temp Pulse Resp B/P Pulse O2 O2 Flow FiO2 Ox Delivery Rate 10/02 08 98.3 65 20 148/80 94 Nasal 2.0L Cannula 10/02 0013 98.3 64 20 118/60 91 Nasal Cannula 10/02 0000 Nasal 2.0L Cannula 10/01 2027 99.7 10/01 1914 101.7 98 22 148/70 92 Nasal 2.0L Cannula 10/01 1909 101.7 10/01 1810 99.9 86 20 166/76 90 Nasal 3.0L Cannula Intake & Output 10/02 0800 10/02 0000 10/01 0000 Intake Total 227 573 6572 860 420 Output Total 550 Balance -727 436 1072 860 420 Intake, IV 10 600 665 620 420 Intake, Oral 120 240 540 240 0 Number 1 1 2 Bowel Movements Output, Urine 550 Patient 152 lb Weight Physical Exam: Physical Exam General Appearance: Alert, Oriented X3, Cooperative, No Acute Distress Skin: No Rashes, No Breakdown HEENT: Atraumatic, PERRLA, EOMI Neck: Supple, No JVD Cardiovascular: Normal S1, Normal S2, 1/6 systolic murmur Lungs: crackles at left lung base Abdomen: Soft, distended Neurological: Normal Speech Extremities: No Clubbing, No Cyanosis, No Edema Vascular: Normal Pulses, Pulses Symmetrical Current Medications: Current Medications Sig/Noah Start time Last Medication Dose Route Stop Time Status Admin Acetaminophen 650 MG Q6 PRN 10/01 1844 AC 10/01 PO 1909 Acetaminophen 1,000 MG Q6P PRN 09/30 2229 AC 09/30 N/A 1 UNIT IV 223 Azithromycin 500 MG DAILY 10/01 999 AC 10/02 Dextrose/Water 250 ML IV 1003 Ceftriaxone Sodium 1,000 MG DAILY 10/01 1000 AC 10/02 IV 1003 Donepezil HCl 10 MG DAILY 10/01 1000 AC 10/02 PO 1003 Enoxaparin Sodium 40 MG DAILY 10/01 1000 AC 10/02 SC 1003 Guaifenesin 600 MG ONCE ONE 10/01 1844 DC 10/01 PO 10/01 Insulin Aspart 0 TIDAC 09/30 1700 AC 10/01 SC 1236 Melatonin 3 MG ONCE ONE 10/02 0115 DC 10/02 PO 10/02 0116 0115 Memantine 10 MG BID 09/30 2200 AC 10/02 PO 1003 Omeprazole 40 MG DAILY AC 10/01 0700 AC 10/02 PO 0601 Oseltamivir Phosphate 75 MG BID 10/01 0100 AC 10/02 PO 10/05 0059 1003 Sodium Chloride 1,000 ML .[id number] 09/30 1545 DC 10/01 IV 10/01 1824 1033 Results Last 48 Hrs of Labs/Mics: Laboratory Tests 10/01/16 0620: Anion Gap 12, Estimated GFR > 60, BUN/Creatinine Ratio 21.3, Creatine Kinase 2797 H, CBC w Diff NO MAN DIFF REQ, RBC 4.18 L, MCV 92.3, MCH 30.7, RDW 13.5, MPV 9.9, Gran % 79.0 H, Lymphocytes % 12.4 L, Monocytes % 8.3, Eosinophils % 0 , Basophils % 0.3, Absolute Granulocytes 11.6 H, Absolute Lymphocytes 1.8, Absolute Monocytes 1.2 H, Absolute Eosinophils 0, Absolute Basophils 0, PUBS MCHC 33.3 09/30/16 2250: Virus Culture Pending Assessment/Plan Assessment/Plan Assessment: 1. Unwitnessed fall; ? syncope 2. Influenza B 3. LLL pneumonia 4. HTN 5. DM 6. HLD 7. GERD 8. Alzheimer's 9. CAD with coronary calcification Recommendations: - Continue current management - Echocardiogram pending - Keep on telemetry for now Continue telemetry? Yes
--- NOTE | 2016-10-02 13:59 | ECHOCARDIOGRAM REPORT ---
MAURICIO DEJESUS Age: 86 : 1930 Gender: M Exam Date: 10/01/2016 18:23 Exam Location: [place] Ht (in): 67 Wt (lb): 185 BSA: 2.01 BP: 120 / 64 Ordering Physician: ABNER ASIF MD Referring Physician: Gordo Garcia MD Chief, SoC Technologist: Chani Fenton [facility] Room Number: 188 Indications: LIGHTHEADEDNESS Rhythm: Sinus Technical Quality: Good FINDINGS Left Ventricle Normal size left ventricle. Mild concentric left ventricular hypertrophy. Normal left ventricular ejection fraction visually estimated at >60%. Normal left ventricular wall motion. Right Ventricle Normal right ventricular size and function. Right Atrium Normal right atrial size. Left Atrium Normal left atrial size. Mitral Valve Mild mitral annular calcification. Trace mitral regurgitation. Aortic Valve Diffuse thickening (sclerosis) of the aortic valve cusps without reduced excursion. Mild aortic regurgitation. Tricuspid Valve Tricuspid valve not well visualized, grossly normal. Pulmonic Valve Pulmonic valve not well visualized, grossly normal. Trace pulmonic regurgitation. Pericardium No pericardial effusion. Great Vessels 4.1 cm dilated aortic root. CONCLUSIONS Normal size left ventricle. Mild concentric left ventricular hypertrophy. Normal left ventricular ejection fraction visually estimated at > 60%. Trace mitral regurgitation. Mild aortic regurgitation. Trace pulmonic regurgitation. 4.1 cm dilated aortic root. Memo Kruse M.D. (Electronically Signed) Final Date: 02 October 2016 13:59 MEASUREMENTS (Male / Female) Normal Values 2D ECHO LV Diastolic Diameter PLAX 5.1 cm 4.2 - 5.9 / 3.9 - 5.3 cm LV Systolic Diameter PLAX 2.7 cm 2.1 - 4.0 cm LV Fractional Shortening PLAX 47.1 % 25 - 46 % LV Ejection Fraction 2D Teich 78.2 % IVS Diastolic Thickness 1.4 cm LVPW Diastolic Thickness 1.4 cm LV Relative Wall Thickness 0.5 RV Internal Dim ED PLAX 3.6 cm 1.9 - 3.8 cm LVOT Diameter 2.1 cm Aortic Root Diameter 4.1 cm LA Systolic Diameter LX 3.0 cm 3.0 - 4.0 / 2.7 - 3.8 cm LA Volume 45.0 cm 18 - 58 / 22 - 52 cm Ascending Aorta Diameter 3.5 cm DOPPLER AV Peak Velocity 143.0 cm/s AV Peak Gradient 8.2 mmHg AV Mean Velocity 105.0 cm/s AV Mean Gradient 5.0 mmHg AV Velocity Time Integral 26.8 cm LVOT Peak Velocity 103.0 cm/s LVOT Peak Gradient 4.2 mmHg LVOT Mean Velocity 72.1 cm/s LVOT Mean Gradient 2.0 mmHg LVOT Velocity Time Integral 19.8 cm LVOT Stroke Volume 68.6 cm AV Area Cont Eq vti 2.6 cm AV Area Cont Eq pk 2.5 cm MV Peak Velocity 89.6 cm/s MV Peak Gradient 3.2 mmHg MV Mean Velocity 52.5 cm/s MV Mean Gradient 1.0 mmHg Mitral E Point Velocity 80.0 cm/s Mitral A Point Velocity 80.0 cm/s Mitral E to A Ratio 1.0 MV PHT Velocity 95.7 cm/s MV Deceleration [place] 540.0 cm/s MV Pressure Half Time 53.2 ms MV Area PHT 4.1 cm MV Deceleration Time 195.0 ms TR Peak Velocity 117.0 cm/s TR Peak Gradient 5.5 mmHg Right Atrial Pressure 5.0 mmHg Pulmonary Artery Systolic Pressu 10.5 mmHg Right Ventricular Systolic Press 10.5 mmHg PV Peak Velocity 109.0 cm/s PV Peak Gradient 4.8 mmHg PV Mean Velocity 70.8 cm/s PV Mean Gradient 2.0 mmHg PV Velocity Time Integral 17.1 cm LV E' Lateral Velocity 9.3 cm/s Mitral E to LV E' Lateral Ratio 8.6 LV E' Septal Velocity 6.8 cm/s Mitral E to LV E' Septal Ratio 11.7
[2016-10-02] MEDS ORDERED: ZITHROMAX500 M2 PO (14:35)
[2016-10-02] MEDS ORDERED: TAMIFLU75 M1 PO (14:35)
--- NOTE | 2016-10-02 14:38 | Patient Discharge Instructions ---
Discharge Instructions General Discharge Information You were seen/treated for: Influenza and left lower lobe pneumonia Special Instructions: Please follow-up with your PCP within a week of discharge or symptoms get worse Please take the flu medication as advised Please take all fall precautions Diet Recommended Diet: Heart Healthy Activity Full Activity/No Limits: No (as tolerated) Acute Coronary Syndrome Inclusion Criteria At DC or during hospital stay patient has or had the following: ACS DIAGNOSIS No Discharge Core Measures Meds if any: Prescribed or Continued at Discharge Meds if any: NOT Prescribed or Continued at Discharge Congestive Heart Failure Inclusion Criteria At DC or during hospital stay patient has or had the following: CHF DIAGNOSIS No Discharge Core Measures Meds if any: Prescribed or Continued at Discharge Meds if any: NOT Prescribed or Continued at Discharge Cerebrovascular accident Inclusion Criteria At DC or during hospital stay patient has or had the following: CVA/TIA Diagnosis No Discharge Core Measures Meds if any: Prescribed or Continued at Discharge Meds if any: NOT Prescribed or Continued at Discharge Venous thromboembolism Inclusion Criteria VTE Diagnosis No VTE Type NONE VTE Confirmed by (Test) NONE Discharge Core Measures - Per Current guidelines, there needs to be overlap - treatment for the first 5 days of Warfarin therapy. - If discharged on Warfarin prior to 5 days of - overlap therapy, the patient will need to be - assessed for post discharge needs including - *Post discharge parental anticoagulation - *Warfarin and/or parental anticoagulation education - *Follow up date to check INR post discharge At least 5 days overlap therapy as Inpatient No Meds if any: Prescribed or Continued at Discharge Warfarin No Note: Overlap Therapy is Warfarin and Anticoagulant Meds if any: NOT Prescribed or Continued at Discharge
--- NOTE | 2016-10-02 14:52 | Discharge Summary ---
Visit Information Visit Dates Admission Date: 09/30/16 Discharge Date: 10/03/2016 Hospital Course Course Attending Physician: MIA LYMAN,ULYSSES Lynn Primary Care Physician: AZEEM GARCIA MD Hospital Course: History was taken from the because the patient's clinical condition and Alzheimer's dementia.Patient is an 86-year-old male with significant past medical history Alzheimer's dementia, hypertension, diabetes, GERD, hyperlipidemia, history of skin cancer, admitted with the chief complaints of unwitnessed fall.Patient was also having history of dry cough and generalized weakness since last 3-4 days Vital signs at the time of admission- [id number], pulse 116, respiratory rate 18, blood pressure 154/73, SPO2 90% on nasal cannula at 4 liters, orthostatic vitals were normal. Influenza B and left lower lobe pneumonia, probably secondary to virus and community-acquired pneumonia - On examination, patient was conscious and cooperative. His vitals were stable. He was able to answer couple of questions, but was intermittently confused. On blood work up. we found leukocytosis 15.0, magnesium 1.5, glucose 150, creatine kinase 1039, UA -hazy, protein 30, ketones 40. Chest x-ray was showing left lower lobe pneumonia. As the patient was having unwitnessed fal, we started him on telemetry monitoring to rule out cardiac arrhythmia. We also started him on IV fluids/ceftriaxone/azithromycin to treat community-acquired pneumonia. Later his flu test came back positive for influenza B. We took droplet precautions and started him on Tamiflu as he was having multiple risk factor to have complication including his age more than 65, diabetes, left lower lobe pneumonia. We discharge him with advice to complete a course of Tamiflu for total duration of 5 days. We also advised to continue cefuroxime for total 7 days course,as we also wanted to cover secondary bacterial infection Unwitnessed fall - On admission, we took orthostatic blood pressure which was normal.We did CT head and cervical spine which were normal without any acute changes and fractures. We kept patient on telemetry monitoring to rule out dysrhythmia and took cardiology consultation. We also did echocardiogram, which were showing LVEF > 60%. We did physical therapy evaluation and according to them, patient can walk without support. Although we were not able to understand exactly what happened, but it doesn't seems to be seizures/arrhythmia/orthostatic hypotension. We sent the patient home with home PT. Allergies: Coded Allergies: NO KNOWN ALLERGIES (03/15/14) Pertinent Lab Results: Chest x-ray- New atelectasis or small pneumonia in the left lower lobe. No fracture, pleural effusion or pneumothorax seen.Stable mediastinal lymphadenopathy. Coronary artery calcification. Upper normal size thoracic aorta. Esophageal hernia Disposition Summary Disposition Principal Diagnosis: Influenza B Unwitnessed fall, unknown cause Left lower lobe pneumonia probable viral pneumonitis, probably secondary bacterial pneumonia and community acquired pneumonia Additional Diagnosis: Diabetes Hypertension Hyperlipidemia GERD Alzheimer's dementia Mediastinal lymphadenopathy Coronary artery calcification Esophageal hernia History of skin cancer Discharge Disposition: home health services Discharge Instructions General Discharge Information Code Status: Do Not Resucitate/Intubat Patient's Diet: Heart healthy diet Patient's Activity: As tolerated Follow-Up Instructions/Appts: Please follow-up with your PCP within a week of discharge or symptoms get worse Please take the flu medication as advised Please take all fall precautions Medications at Discharge Discharge Medications: Continue taking these medications: Memantine Hydrochloride (Namenda) 10 MG TABLET 1 Tablet ORAL TWICE DAILY Qty = 60 Comments: Last Taken:03/16/14 Time:0930 Donepezil Hydrochloride (Donepezil Hydrochloride) 10 MG TAB 1 Tablet ORAL DAILY Qty = 30 Comments: Last Taken:03/16/14 Time:0100 Metformin HCl (Metformin HCl) 500 MG TABLET 1 Tablet ORAL TWICE DAILY Comments: Last Taken: 10/03/16 Time: 9:50 AM Simvastatin (Zocor) 20 MG TAB 1 Tablet ORAL Every night Comments: Last Taken:03/16/14 Time:1700 Omeprazole (Omeprazole) 40 MG CAPSULE.DR 1 Capsule ORAL DAILY Qty = 30 Comments: Last Taken:03/16/14 Time:0930 Start taking the following new medications: Oseltamivir Phosphate (Tamiflu) 75 MG CAPSULE 75 Milligram ORAL TWICE DAILY Days = 3 No Refills Comments: Last Taken: 10/03/16 Time: 9:50 AM Cefuroxime Axetil (Cefuroxime) 500 MG TABLET 1 Tablet ORAL TWICE DAILY Qty = 8 No Refills Comments: Last Taken: 10/03/16 Time: 9:50 AM Copies To: MIA LYMAN,ULYSSES GARCIA MD,CHARI GARZA MD,MIRIAN Emerson Attending MD Review Statement Documenting Attending: MIA LYMAN,ULYSSES Lynn
[2016-10-02 16:05] VITALS: BP 120/70
[2016-10-02] MEDS ORDERED: CEFUROXIME500 MG PO (16:07)
[2016-10-02 23:12] VITALS: BP 152/70
--- NOTE | 2016-10-03 07:18 | PN- Housestaff ---
See Addendum Subjective Follow-up For: Influenza B Left Lower lobe pneumonitis Complaints: no complaints Subjective: Patient is seen and examined at bedside. He does not have any active complaints. Overnight he was comfortable. Review of Systems Constitutional: Denies: no symptoms. Comments: We cannot assess the symptoms because of patient's clinical condition Objective Last 24 Hrs of Vital Signs/I&O Vital Signs Date Time Temp Pulse Resp B/P Pulse O2 O2 Flow FiO2 Ox Delivery Rate 10/03 0000 Nasal 2.0L Cannula 10/02 2312 97.8 58 20 152/70 92 Nasal Cannula 10/02 1605 97.6 65 20 120/70 92 10/02 0802 98.3 65 20 148/80 94 Nasal 2.0L Cannula Intake & Output 10/03 0800 10/03 0000 10/02 1600 Intake Total 250 250 600 Output Total 400 350 300 Balance -150 -100 300 Intake, IV 10 10 Intake, Oral 240 240 600 Number 2 1 Bowel Movements Output, Urine 400 350 300 Physical Exam General Appearance: Alert, Cooperative, No Acute Distress Skin: No Rashes, No Breakdown HEENT: Atraumatic, PERRLA, EOMI Neck: Supple, No JVD Cardiovascular: Normal S1, Normal S2 Lungs: mild basilar crackles on left side Abdomen: Soft, No Tenderness Neurological: Normal Speech Extremities: No Clubbing, No Cyanosis, No Edema Vascular: Normal Pulses, Pulses Symmetrical Assessment/Plan Assessment: Patient is an 86-year-old male with significant past medical history Alzheimer's dementia, hypertension, diabetes, GERD, hyperlipidemia, history of skin cancer, admitted with the chief complaints of unwitnessed fall. History has been taken from the because the patient's clinical condition and Alzheimer's dementia Problem list- Influenza B Unwitnessed fall under evaluation Left lower lobe pneumonia probable viral pneumonitis and community acquired pneumonia Diabetes Hypertension Hyperlipidemia GERD Alzheimer's dementia Mediastinal lymphadenopathy Coronary artery calcification Esophageal hernia History of skin cancer Vital signs-temperature 97.8, pulse 65, respiratory rate 20, blood pressure 152/ 70, SPO2 92% Plan - * We'll stop telemetry monitoring * We will discharge him today * We'll stop ceftriaxone and azithromycin. * We will restart him on Cefuroxime 500mg BID X 7DAY * As flu test is positive for influenza B, and patient is having comorbidities including his age more than 65, so we will continue on Tamiflu for total 5 days * As the patient's CPK is elevated , we will restart atorvastatin. * We will restart Metformin 500mg BID. * we will stop insulin and blood sugar mesurment. * Continue PT evaluation * Echocardiogram showed -Normal size left ventricle. Mild concentric LVH, LVEF> 60%. Normal left ventricular wall motion. * We will follow cardiology recommendation * We'll continue all home medication * CODE STATUS DNR/DNI * DVT prophylaxis ALP S/heparin * Diet -heart healthy diet, he passed formal swallow evaluation Problem List: 1. Influenza B 2. Left lower lobe pneumonia 3. Unwitnessed fall 4. Alzheimer's dementia 5. Diabetes mellitus 6. Hyperlipidemia 7. Hypertension Pain Ratin Pain Location: generalized body Pain Goal: Remain pain free Pain Plan: mild Tomorrow's Labs & Rationales: none DVT/Prophylaxis: mechanical, pharmacological
[2016-10-03 08:07] VITALS: BP 154/78
--- NOTE | 2016-10-03 11:13 | PN- Cardiology ---
Subjective Subjective: The patient's helpful. He continues to be somewhat confused. No palpitations. No chest pain. No shortness of breath. Objective Vital Signs and I&Os Vital Signs Date Time Temp Pulse Resp B/P Pulse O2 O2 Flow FiO2 Ox Delivery Rate 10/03 0807 98.3 58 20 154/78 94 Nasal 2.0L Cannula 10/03 0000 Nasal 2.0L Cannula 10/02 2312 97.8 58 20 152/70 92 Nasal Cannula 10/02 1605 97.6 65 20 120/70 92 Intake & Output 10/03 1600 10/03 0800 10/03 0000 10/02 1600 10/02 0810/02 0000 Intake Total 250 250 600 130 840 Output Total 400 350 300 550 Balance -150 -100 300 -420 840 Intake, IV 10 10 10 600 Intake, Oral 240 240 600 120 240 Number 2 1 1 Bowel Movements Output, Urine 400 350 300 550 Physical Exam: Gen: The patient is in no acute distress HEENT: Normal nose, ears, and oropharynx. Pupils equal bilaterally. Conjunctiva normal. Neck: Supple with no JVD, no masses, and no thyromegaly Lungs: Clear to auscultation with normal respiratory effort Heart: RRR, S1, S2, 1/6 systolic murmur. No peripheral edema, 2+ pulses in the lower extremities bilaterally Abdomen: Soft, nontender, no masses. No hepatomegaly. No splenomegaly Extremities: No clubbing or cyanosis. Normal muscle strength in the upper and lower extremities Skin: Normal skin turgor with no skin ulcers or lesions noted. Current Medications: Current Medications Sig/Noah Start time Last Medication Dose Route Stop Time Status Admin Acetaminophen 650 MG Q6 PRN 10/01 1845 AC 10/01 PO 1910 Acetaminophen 1,000 MG Q6P PRN 09/30 2230 AC 09/30 N/A 1 UNIT IV 2232 Azithromycin 500 MG DAILY 10/01 1000 DC 10/02 Dextrose/Water 250 ML IV 1003 Ceftriaxone Sodium 1,000 MG DAILY 10/01 1000 DC 10/02 IV 1003 Cefuroxime Sodium 500 MG Q12 10/03 1000 AC 10/03 PO 0947 Donepezil HCl 10 MG DAILY 10/01 1000 AC 10/03 PO 0947 Enoxaparin Sodium 40 MG DAILY 10/01 1000 AC 10/03 SC 0947 Insulin Aspart 0 TIDAC 09/30 1700 DC 10/01 MN 1236 Melatonin 3 MG ONCE ONE 10/02 2245 DC 10/02 PO 10/02 2246 2310 Memantine 10 MG BID 09/30 2200 AC 10/03 PO 0947 Metformin HCl 500 MG 0800,1700 10/03 0800 AC 10/03 PO 0947 Omeprazole 40 MG DAILY AC 10/01 0700 AC 10/03 PO 0604 Oseltamivir Phosphate 75 MG BID 10/01 0100 AC 10/03 PO 10/05 0059 0948 Results Recent Imaging Studies: Echocardiogram 10/02/16: Normal size left ventricle. Mild concentric left ventricular hypertrophy. Normal left ventricular ejection fraction visually estimated at > 60%. Trace mitral regurgitation. Mild aortic regurgitation. Trace pulmonic regurgitation. 4.1 cm dilated aortic root. Assessment/Plan Assessment/Plan Assessment: 1. Dementia 2. Possible syncope 3. Normal left ventricular function on echocardiogram 4. No significant arrhythmias on telemetry. 5. Influenza with left lower lobe pneumonia 6. CAD, stable Plan: * Restart statin therapy * No further cardiac workup is needed at this time. Continue telemetry? No
== END 2016-10-03 13:56 | disposition home health service (06) | DRG 193 ==
LOC: ENRESERVDT → ENRESERVTM → ERH 10:34 → ERHI 14:51 → 1NO 14:51 → ENPENDDIS 14:51 → 1NO 17:23
PROVIDERS: Emergency Medicine; Internal Medicine; ADMIT Internal Medicine
DX: J10.08 Influenza due to other identified influenza virus with other specified pneumonia (principal); J96.01 Acute respiratory failure with hypoxia; M62.82 Rhabdomyolysis; J12.9 Viral pneumonia, unspecified; G30.9 Alzheimer's disease, unspecified; F02.80 Dementia in other diseases classified elsewhere, unspecified severity, without behavioral disturbance, psychotic disturbance, mood disturbance, and anxiety; I10 Essential (primary) hypertension; E11.9 Type 2 diabetes mellitus without complications; K21.9 Gastro-esophageal reflux disease without esophagitis; E78.5 Hyperlipidemia, unspecified; I25.10 Atherosclerotic heart disease of native coronary artery without angina pectoris; R59.1 Generalized enlarged lymph nodes; Z79.84 Long term (current) use of oral hypoglycemic drugs
CPT/HCPCS: 1NP; 1NSP; 36415; 81001; 82436; 87040; 87804; 87804-59; 93005; 93010; 93306; 96374; 96375; 97110-GO; 97116-GO; 97162-GP; 97530-GO; J0131; J0456; J0696; J1650; J7040; J7060